=== PATIENT | female | born 1975 | race American Indian/Alaskan Native ===

== ENCOUNTER 2019-07-31 16:13 | Emergency (ER) | payer MEDICAID ==
[~2019-07-31] VITALS: Ht 170.2 cm; Wt 90.0 kg
[2019-07-31 16:22] VITALS: BP 157/85
[2019-07-31] MEDS ORDERED: HYDROcodone/acetaminophen 10/325mg tab PO ONE (17:15)
[2019-07-31] MEDS ORDERED: HYDR-4353 PO (17:39)
== END 2019-07-31 18:02 | disposition home or self-care (01) ==
LOC: ER 16:14
DX: S82.491A Other fracture of shaft of right fibula, initial encounter for closed fracture (principal); Z79.899 Other long term (current) drug therapy; W01.0XXA Fall on same level from slipping, tripping and stumbling without subsequent striking against object, initial encounter; Y93.89 Activity, other specified; Y92.89 Other specified places as the place of occurrence of the external cause; Y99.8 Other external cause status
CPT/HCPCS: 73610; 99283

== ENCOUNTER 2019-08-16 09:06 | Outpatient (CLI) | payer MEDICAID ==
[2019-08-16 09:27] VITALS: BP 118/75
== END 2019-08-16 10:19 | disposition home or self-care (01) ==
LOC: ORTHO 09:06
PROVIDERS: ATTEND Nurse Practitioner
DX: S92.901A Unspecified fracture of right foot, initial encounter for closed fracture (principal); M79.89 Other specified soft tissue disorders; M77.51 Other enthesopathy of right foot and ankle; X58.XXXA Exposure to other specified factors, initial encounter; Y93.89 Activity, other specified; Y92.89 Other specified places as the place of occurrence of the external cause; Y99.8 Other external cause status
CPT/HCPCS: 73610; G0463